=== PATIENT | male | born 1990 | race Caucasian/White ===

== ENCOUNTER 2024-09-29 10:22 | Emergency (ER) | payer SELFPAY ==
[2024-09-29 10:38] VITALS: BP 121/90; PULSE 102; RESP 16; TEMP 36.9; O2SAT 98; BMI 30.3
--- NOTE | 2024-09-29 11:15 | ED_ITS ---
HPI - URI/Sore Throat General: Chief Complaint: Upper Respiratory Infection Stated Complaint: coughing Time Seen by Provider: 09/29/24 10:24 Source: patient Mode of arrival: ambulatory Limitations: no limitations History of Present Illness: Patient is a 34-year-old male who presents to ED today along with his significant other and all 3 children all of which are being seen today for identical symptoms. Parents state the whole family have had cough, congestion, runny nose, shortness of breath, chills/body aches. Patient states his kids have been sick for several days but he just now started symptoms today. MD elicited complaint: cough, sore throat and nasal congestion Consistency: constant Severity: moderate Description of mucous: clear Able to tolerate fluids by mouth: Yes Exacerbating factors: nothing Relieving factors: nothing Associated symptoms: Reports chills, headache(s) and nasal congestion; Deny chest pain, diarrhea, ear or mastoid pain, fever(s), sinus pain or vomiting Treatments prior to arrival: none Related Data Allergies Allergy/AdvReac Type Severity Reaction Status Date / Time Penicillins Allergy ALGY-Hives Verified 09/29/24 10:42 Review of Systems Const: Reports: chills and body aches; Denies: fever(s) ENMT: Reports: throat pain, odynophagia, nasal discharge and nasal congestion; Denies: ear or mastoid pain or sinus pain Card: Denies: chest pain Resp: Reports: dyspnea, non-productive cough and chest congestion; Denies: wheezing or hemoptysis GI: Denies: vomiting or diarrhea Musc: Denies: neck pain or back pain Skin/Breast: Denies: rash Neuro: Reports: headache(s) Physical Exam Const: COMMON NORMALS: no acute distress, average body habitus, patient orient ed x3, no limitations, healthy appearing, alert and well nourished GENERAL APPEARANCE: cooperative HENMT: COMMON NORMALS: normocephalic, atraumatic, hearing grossly normal bilaterally, external ears normal, EAC's normal, TM's normal bilaterally, Normal external nose present, Normal nasal mucous membranes and turbinates present, moist oral mucous membranes and oropharynx normal HEAD & SCALP: normal to inspection, normocephalic and atraumatic FACE & SINUS: normal facial exam and sinuses nontender NOSE: Normal external nose present and Normal nasal mucous membranes and turbinates present EXTERNAL EAR: Yes external ears normal EXTERNAL AUDITORY CANAL: EAC's normal TYMPANIC MEMBRANE: TM's normal bilaterally THROAT: posterior oropharynx normal, tonsils normal and uvula midline Eye: COMMON NORMALS: Equal, round and reactive pupils present, EOMs intact bilaterally and conjunctivae normal CONJUNCTIVA: Yes conjunctivae normal PUPIL: Yes Equal, round and reactive pupils present Neck/C-Spine: COMMON NORMALS: no lymphadenopathy Resp: COMMON NORMALS: normal respiratory effort and clear to auscultation bilaterally AUSCULTATION: clear to auscultation bilaterally Cardio: COMMON NORMALS: regular rate and regular rhythm RATE: regular rate RHYTHM: regular rhythm Extremity: GENERAL: Yes normal exam except as noted Neuro: COMMON NORMALS: patient oriented x3 SENSORIUM/ORIENTATION: Yes alert Skin: COMMON NORMALS: no rashes or lesions noted GENERAL SKIN EXAM: no rashes or lesions noted Course Vital Signs: Vital signs: Vital Signs Temperature 98.4 F 09/29/24 10:38 Pulse Rate 102 H 09/29/24 10:38 Respiratory Rate 16 09/29/24 10:38 Blood Pressure 121/90 09/29/24 10:38 Pulse Oximetry 98 09/29/24 10:38 Oxygen Delivery Me thod Room Air 09/29/24 10:38 MDM - URI/Sore Throat Medical Decision Making The entire family of 5 is being seen here in the emergency department for identical symptoms. They all appear in no acute distress including patient. His vital signs are stable. Mother will be swabbed for a respiratory panel. If positive for anything I would presume that the entire family has the same virus. We discussed conservative therapies. Return to ED precautions discussed. Differential Diagnosis Likely upper respiratory infection, croup, viral infection, bronchitis and influenza Medical Records I reviewed the patient's medical records. No radiology studies performed this visit Discharge Plan Discharge Patient Disposition: Home Clinical Impression: Viral URI with cough Condition: Stable Discharge Orders: Discharge ED (Routine); Ordered 09/29/24 Ordered By: Jazzmine Reed Patient Instructions: Upper Respiratory Infection (DC) Coding Level of Care Code ED Academic Administrator for Arjun Bear
== END 2024-09-29 11:49 | disposition home or self-care (01) ==
PROVIDERS: Emergency Provider Physician Assistant
DX: J06.9 Acute upper respiratory infection, unspecified (principal)
CPT/HCPCS: 99282